=== PATIENT | female | born 1970 | race Caucasian/White ===

== ENCOUNTER 2016-08-28 10:21 | Day surgery (SDC) | payer OTHER ==
[~2016-08-28 10:21] MED LIST: ALEVE220 M2 PO; CALCIUM CITRAT1 EA18 PO; IBUPROFEN200 M1 PO; MIDOL220 MG PO; MULTIVITAMINS1 EAC6 PO; OMEGA 3 1,0001 EAC1 PO; OXYCODONE/APAP PO; SYNTHROID100 MC1 PO; [UNRECOGNIZED DRUG - REMARK] PO
[2016-08-29] MEDS ORDERED: NORCO 5-325 TA1 EACH PO (10:21)
[2016-08-29] MEDS ORDERED: CYTOMEL5 MC1 PO (10:24)
== END 2016-08-29 12:25 ==
LOC: SRG 10:21 → SHSB 10:24 → ORE 12:59 → PACU 14:46 → 5WE 16:20
PROC: 0GTG0ZZ Resection of Left Thyroid Gland Lobe, Open Approach (ICD-10-PCS; principal; 2016-08-28)
DX: E06.3 Autoimmune thyroiditis (principal); J30.2 Other seasonal allergic rhinitis; Z98.890 Other specified postprocedural states; Z88.6 Allergy status to analgesic agent; Z79.899 Other long term (current) drug therapy; Z90.710 Acquired absence of both cervix and uterus
CPT/HCPCS: J1100